=== PATIENT | male | born 1970 | race Caucasian/White ===

== ENCOUNTER 2017-02-22 09:24 | Emergency (ER) | payer OTHER ==
[2017-02-22] MEDS: morphine 4 MG/ML VIAL IM (11:26)
[2017-02-22] MEDS: ONDANSETRON 4 MG INJ IM (11:27)
[2017-02-22] MEDS: KETOROLAC 60 MG INJ IM (11:27)
== END 2017-02-22 12:07 | disposition home or self-care (01) ==
LOC: FTE 12:07
DX: K52.9 Noninfective gastroenteritis and colitis, unspecified (principal)
CPT/HCPCS: 96372; 99284-25

== ENCOUNTER 2017-11-12 05:53 | Day surgery (SDC) | payer OTHER ==
[2017-11-12] MEDS ORDERED: FENTAnyl 50 MCG/ML VIAL (08:05)
[2017-11-12] MEDS ORDERED: MIDAZOLAM 1 MG/ML 2 ML INJ ×2 (08:05)
== END 2017-11-12 12:57 | disposition home or self-care (01) ==
LOC: GIL 05:53
DX: K29.60 Other gastritis without bleeding (principal); E78.5 Hyperlipidemia, unspecified
CPT/HCPCS: 43239; 88305; 88312